=== PATIENT | female | born 1955 | race Caucasian/White ===

== ENCOUNTER 2017-02-11 09:03 | Emergency (ER) | payer BC ==
--- NOTE | 2017-02-11 09:11 | UC ---
Eye Complaint HPI - HPI Summary HPI Summary: 61 year old female presents with complains of right eye pain/redness - History of Current Complaint Stated Complaint: RIGHT EYE COMPLAINT Time Seen by Provider: 02/11/17 09:08 - Allergies/Home Medications Allergies/Adverse Reactions: Allergies Allergy/AdvReac Type Severity Reaction Status Date / Time Penicillins [PCN] Allergy Unknown Verified 08/31/14 16:15 Reaction Details PMH/Surg Hx/FS Hx/Imm Hx Previously Healthy: Yes - Surgical History Surgery Procedure, Year, and Place: Tonsilectomy, 2x C sections, breast reduction, gall bladder removal. - Social History Alcohol Use: Weekly Alcohol Amount: 2-3 glasses of wine Substance Use Type: None Smoking Status (MU): Former Smoker Length of Time of Smoking/Using Tobacco: Quit 40 years ago and smoked for 1 year. Have You Smoked in the Last Year: No Review of Systems Constitutional: Negative Skin: Negative Eyes: Negative ENT: Negative Respiratory: Negative Cardiovascular: Negative Gastrointestinal: Negative Genitourinary: Negative Motor: Negative Neurovascular: Negative Musculoskeletal: Negative Neurological: Negative Psychological: Negative All Other Systems Reviewed And Are Negative: Yes Physical Exam Triage Information Reviewed: Yes Vital Signs Reviewed: Yes Eye Exam: Normal ENT Exam: Normal Dental Exam: Normal Neck exam: Normal Neck: Positive: 1 Respiratory Exam: Normal Cardiovascular Exam: Normal Abdominal Exam: Normal Musculoskeletal Exam: Normal Neurological Exam: Normal Psychological Exam: Normal Skin Exam: Normal Eye Complaint Course/Dx - Differential Dx/Diagnosis Provider Diagnoses: right eye pain Discharge - Discharge Plan Condition: Stable Disposition: HOME Referrals: Xavier NEAL,Rafy De [Primary Care Provider] -
[2017-02-11] MEDS ORDERED: Eye Irrigation Solution 30 ML BOTTLE RIGHT EYE ONE (09:17)
[2017-02-11] MEDS ORDERED: Tetracaine 0.5% OPTH.SOL 4 ML* 1 DROP BTL ONE (09:21)
[2017-02-11] MEDS ORDERED: Fluorescein Sodium TOPICAL* 1 MG TEST ONE (09:21)
[2017-02-11] MEDS ORDERED: BSS OPTH.SOL* BTL ONE (09:21)
[2017-02-11 09:25] VITALS: BP 181/90
== END 2017-02-11 09:43 | disposition home or self-care (01) ==
LOC: UCCORT 09:03
DX: H57.11 Ocular pain, right eye (principal); Z88.0 Allergy status to penicillin; Z90.49 Acquired absence of other specified parts of digestive tract; Z87.891 Personal history of nicotine dependence
CPT/HCPCS: 65205; 99212; A9270-GY; G0463